=== PATIENT | female | born 1985 | race Caucasian/White ===

== ENCOUNTER 2022-07-22 21:49 | Emergency (ER) | payer MEDICAID ==
[~2022-07-22] VITALS: Ht 154.9 cm; Wt 66.0 kg
[2022-07-22 23:00] VITALS: BP 97/72
== END 2022-07-23 02:55 | disposition home or self-care (01) ==
LOC: ER 21:49
DX: R06.02 Shortness of breath (principal); J02.9 Acute pharyngitis, unspecified
CPT/HCPCS: 70360; 71045; 93005; 99284

== ENCOUNTER 2024-10-15 19:28 | Emergency (ER) | payer MEDICAID, OTHER ==
[~2024-10-15] VITALS: Ht 154.9 cm; Wt 69.0 kg
[2024-10-15 19:34] VITALS: BP 150/101; PULSE 106; RESP 18; O2SAT 99
[2024-10-15 20:44] VITALS: TEMP 98.9
[2024-10-15] MEDS: ACETAMINOPHEN 325MG TABLET PO ONE (20:44)
[2024-10-15] MEDS ORDERED: LIDO700A15 TP (20:56)
[2024-10-15] MEDS ORDERED: NAPR-1176 MT (20:56)
== END 2024-10-16 00:36 | disposition home or self-care (01) ==
LOC: ER 19:28
DX: S60.211A Contusion of right wrist, initial encounter (principal); M79.641 Pain in right hand; Z79.1 Long term (current) use of non-steroidal anti-inflammatories (NSAID); W18.39XA Other fall on same level, initial encounter; Y93.89 Activity, other specified; Y92.89 Other specified places as the place of occurrence of the external cause; Y99.8 Other external cause status
CPT/HCPCS: 73130; 99283